=== PATIENT | female | born 2005 | race Caucasian/White ===

== ENCOUNTER 2025-04-28 10:59 | Outpatient (CLI) | payer OTHER, SELFPAY ==
--- NOTE | 2025-04-28 11:15 | CRLHL7_ITS ---
For Patients: As a result of the Century Cures Act, medical imaging exams and procedure reports are released immediately into your electronic medical record. You may view this report before your referring provider. If you have questions, please contact your health care provider. OB ULTRASOUND SURVEY LMP: 12/05/2024. DARYL by LMP: 09/11/2025. GA: 20 w, 4 d. INDICATION: Supervision of normal . TECHNIQUE: Real time grayscale imaging of the fetus was performed. Evaluate anatomy. Transabdominal imaging performed. position: Vertex. Cervix: Visualized. Technique: Transabdominal. Length of closed cervix: 3.7 cm. Placenta/cord: Anterior. Technique: Transabdominal. Placenta tip to internal OS: 7.1 cm. Umbilical Cord: 3-vessel cord. Placenta insertion: Central. Amniotic Fluid: 4.5 cm SDP (greater than/equal to: 2- less than 8 cm). SURVEY: Observed Structures. Calvarium/Spine: Cerebellum: 2.2 cm, 21 w 6 d. Cisterna Magna: 3.7 mm. Nuchal Fold: 4.5 mm. Lateral Ventricle: 7.1 mm. CSP: Yes. Midline Falx: Yes. Choroid Plexus: Yes. Spine: Yes. Abdomen: Stomach: Yes. Abd Cord Insertion: Yes. Urinary Bladder: Yes. Kidneys: Yes. Diaphragm: Yes. Face: Nose/lips: Yes. Orbital view: Yes. Profile: Yes. Limbs: Upper Extremities: Yes. Lower Extremities: Yes. Hands: Yes. Feet: Yes. Vascular: 4-Chamber Heart: Yes. LVOT: Yes. RVOT: Yes. 3VV: Yes. 3VTV: Yes. BPD: 5.0 cm. 21 w, 0 d, 68%. HC: 18.3 cm. 20 w, 5 d, 48%. AC: 15.6 cm. 20 w, 6 d, 51%. FL: 3.4 cm. 20 w, 4 d, 41%. FL/AC ratio: 21.56%. HC/AC ratio: 1.17. heart rate: 157 bpm. age by this US: 21 w, 0 d. DARYL by this US: 09/08/2025. EFW: 371.51g. Weight: 0 lbs., 13 oz. Percentile by DARYL: 53%. IMPRESSION: 1. Concordance of clinical and sonographic dates. 2. Renal pelvis measures 6 mm on the right and 4 mm on the left. Remainder of the anatomic survey is normal. Third trimester follow-up is recommended. 3. Placental acevedo is present adjacent to the placental cord insertion measuring 2 cm. Attention at follow-up recommended. The placenta is also more heterogeneous than expected. Maternal medical consult could be considered. Greg Ramirez M.D. Diagnostic Radiologist [email or web address] CHITRA/[email or web address] [email or web address]/Dictated by: Greg Ramirez MD @ 04/28/2025 2:54:00 PM (Electronically Signed)
== END 2025-04-28 11:00 | disposition home or self-care (01) ==
LOC: US 11:03
PROVIDERS: PCP Family Medicine; Visit Provider Advanced Practice Midwife
DX: Z34.02 Encounter for supervision of normal first pregnancy, second trimester (principal); R94.5 Abnormal results of liver function studies; F12.11 Cannabis abuse, in remission
CPT/HCPCS: 76805

== ENCOUNTER 2025-04-28 12:48 | Outpatient (CLI) | payer OTHER, SELFPAY | END 2025-04-28 12:49 | disposition home or self-care (01) | PROVIDERS: PCP Family Medicine; Visit Provider Advanced Practice Midwife | DX: Z34.92 Encounter for supervision of normal pregnancy, unspecified, second trimester (principal); F12.11 Cannabis abuse, in remission | CPT/HCPCS: 80306; 83020; 83021; 85660; 86703; 86704; 86706; 86762; 86780; 86787; 86803; 86850; 86900; 86901; 87086; 87340 ==